=== PATIENT | female | born 1945 | race Two or more races ===

== ENCOUNTER 2024-10-14 07:15 | Emergency (ER) | payer OTHER ==
[~2024-10-14] VITALS: Ht 167.6 cm; Wt 77.1 kg
[2024-10-14] MEDS ORDERED: LEVOTHYROXINE25 MCG PO (07:43)
[2024-10-14] MEDS ORDERED: INDAPAMIDE1.25 MG (07:43)
[2024-10-14] MEDS ORDERED: ATORVASTATIN CA10 MG PO (07:43)
[2024-10-14] MEDS ORDERED: KAPSPARGO SPRIN25 MG PO (07:43)
[2024-10-14 09:15] LABS: HEMATOCRIT 37.7 % (36.0-45.00); HEMOGLOBIN 12.6 g/dL (12.0-15.00); MEAN CELL VOLUME 92.2 fL (80.00-100.00); MEAN CORPUSCULAR HEMOGLOBIN 30.7 pg (27.00-32.0); MEAN CORPUSCULAR HGB CONC 33.3 g/dl (32.0-36.0); PLATELET COUNT 246 K/uL (150-450); RED BLOOD COUNT 4.09 M/uL (4.00-6.00); RED CELL DISTRIBUTION WIDTH 13.8 % (11.5-14.5)
[2024-10-14 09:35] LABS: ALBUMIN 4.2 gm/dL (3.4-5.0); BILIRUBIN TOTAL 0.38 mg/dL (0.3-1.2); CALCIUM 10.1 mg/dL (8.5-10.1); CREATININE SERUM 1.13 mg/dL (0.55-1.02); GFR 46.33; GLOBULINA 3.8 G/DL (2.4-3.5); POTASSIUM 3.81 mEq/L (3.5-5.1); TSH 3.76 uIU/mL (0.358-3.74)
== END 2024-10-14 10:24 | disposition home or self-care (01) ==
LOC: ER 07:15
PROVIDERS: General Practice
DX: R42 Dizziness and giddiness (principal); I10 Essential (primary) hypertension